=== PATIENT | male | born 1965 | race Caucasian/White ===

== ENCOUNTER 2020-02-11 03:10 | Emergency (ER) | payer BC ==
[2020-02-11 03:59] LABS: HEMOGLOBIN 16.1 gm/dl (14.0-17.5); RED BLOOD COUNT 4.94 M/UL (4.20-5.50); WHITE BLOOD COUNT 12.7 K/UL (4.5-11.0)
[2020-02-11 04:17] LABS: BUN/CREATININE RATIO 9 (0-10)
[2020-02-11] MEDS ORDERED: ELIQUIS 5 MG TAB5 MG PO (06:34)
[2020-02-11] MEDS ORDERED: PERCOCET 5-3251 EACH PO (06:34)
[2020-02-11] MEDS ORDERED: ZOFRAN ODT 4 MG4 MG PO (06:34)
== END 2020-02-11 07:48 | disposition home or self-care (01) ==
LOC: ER1 03:10
PROVIDERS: Emergency Medicine
DX: N28.0 Ischemia and infarction of kidney (principal); F17.200 Nicotine dependence, unspecified, uncomplicated; Z20.828 Contact with and (suspected) exposure to other viral communicable diseases
CPT/HCPCS: 80053; 81001; 83615; 83690; 85025; 85610; 85730; 93005; 96374; 96375; 99284; J2270; J2405; Q9967; U0002

== ENCOUNTER 2020-08-11 13:42 | Emergency (ER) | payer BC ==
[~2020-08-11 13:42] MED LIST: ELIQUIS 5 MG TAB5 MG PO; PERCOCET 5-3251 EACH PO; ZOFRAN ODT 4 MG4 MG PO
[2020-08-11] MEDS ORDERED: MOBIC15 MG PO (15:35)
[2020-08-11] MEDS ORDERED: AMOXICILLIN875 MG PO (15:35)
== END 2020-08-11 16:42 | disposition home or self-care (01) ==
LOC: ER1 13:42
DX: K02.9 Dental caries, unspecified (principal); K05.10 Chronic gingivitis, plaque induced
CPT/HCPCS: 99283